=== PATIENT | female | born 1995 | race Caucasian/White ===

== ENCOUNTER → 2021-05-09 | Outpatient (CLI) | payer OTHER ==
[~2021-05-09] MED LIST: DOCUSATE SODIU100 MG PO; FERROUS SULFAT325 MG PO; HYDROCODON-ACE1 EAC4 PO; IBUPROFEN600 MG PO
[2021-05-09 15:43] LABS: HEMOGLOBIN 10.2 gm/dl (12.3-15.3); RED BLOOD COUNT 3.54 M/UL (4.00-5.10); WHITE BLOOD COUNT 7.3 K/UL (4.5-11.0)
== END ==
LOC: GENOP 13:34
PROVIDERS: Obstetrics & Gynecology
DX: O99.891 Other specified diseases and conditions complicating pregnancy (principal); R03.0 Elevated blood-pressure reading, without diagnosis of hypertension; R51.9 Headache, unspecified; R20.0 Anesthesia of skin; Z14.1 Cystic fibrosis carrier; Z3A.39 39 weeks gestation of pregnancy
CPT/HCPCS: 81001; 85025; G0463

== ENCOUNTER 2021-05-11 05:38 | Inpatient (IN) | payer OTHER ==
[~2021-05-11] VITALS: Ht 157.5 cm; Wt 108.9 kg
[2021-05-11] MEDS ORDERED: HYDROCODON-ACE1 EAC4 PO (08:35)
[2021-05-11] MEDS ORDERED: IBUPROFEN600 MG PO (08:35)
[2021-05-11] MEDS ORDERED: DOCUSATE SODIU100 MG PO (08:35)
[2021-05-12] MEDS ORDERED: FERROUS SULFAT325 MG PO (11:53)
== END 2021-05-12 17:15 | disposition home or self-care (01) | DRG 787 ==
LOC: GENOP 05:38 → OB 05:55
PROVIDERS: ADMIT Obstetrics & Gynecology
PROC: 4A1HX4Z Monitoring of Products of Conception, Cardiac Electrical Activity, External Approach (ICD-10-PCS; 2021-05-11)
PROC: 10D00Z1 Extraction of Products of Conception, Low, Open Approach (ICD-10-PCS; principal; 2021-05-11 08:34)
DX: O34.211 Maternal care for low transverse scar from previous cesarean delivery (principal); O98.32 Other infections with a predominantly sexual mode of transmission complicating childbirth; N85.8 Other specified noninflammatory disorders of uterus; Z3A.39 39 weeks gestation of pregnancy; Z37.0 Single live birth; Z14.1 Cystic fibrosis carrier; Z20.822 Contact with and (suspected) exposure to COVID-19
CPT/HCPCS: 36415; 82800; 85014; 85018; C9113; J0690; J2274; J2405; J2590; J7120; U0002

== ENCOUNTER 2022-08-03 13:22 | Outpatient (CLI) | payer OTHER ==
[2022-08-03 14:10] LABS: HEMOGLOBIN 10.3 gm/dl (12.3-15.3); RED BLOOD COUNT 3.81 M/UL (4.00-5.10)
== END 2022-08-03 14:06 | disposition home or self-care (01) ==
LOC: GENOP 13:22
PROVIDERS: Obstetrics & Gynecology
DX: Z01.812 Encounter for preprocedural laboratory examination (principal)
CPT/HCPCS: 36415; 81001; 85025

== ENCOUNTER 2022-08-06 07:25 | Inpatient (IN) | payer OTHER ==
[~2022-08-06] VITALS: Ht 157.5 cm; Wt 104.3 kg
[2022-08-06] MEDS ORDERED: VALTREX1000 MG PO (08:09)
[2022-08-06] MEDS ORDERED: DOCUSATE SODIU100 MG PO (08:13)
[2022-08-06] MEDS ORDERED: IBUPROFEN600 MG PO (08:13)
[2022-08-06] MEDS ORDERED: HYDROCODON-ACE1 EAC4 PO (08:13)
[2022-08-06 14:13] LABS: HEMOGLOBIN 8.8 gm/dl (12.3-15.3)
[2022-08-07 04:44] LABS: HEMOGLOBIN 7.2 gm/dl (12.3-15.3)
[2022-08-08] MEDS ORDERED: FERROUS SULFAT325 MG PO (10:43)
== END 2022-08-08 19:21 | disposition home or self-care (01) | DRG 787 ==
LOC: OB 07:25
PROVIDERS: ADMIT Obstetrics & Gynecology
PROC: 10D00Z1 Extraction of Products of Conception, Low, Open Approach (ICD-10-PCS; principal; 2022-08-06 08:49)
DX: O34.211 Maternal care for low transverse scar from previous cesarean delivery (principal); D62 Acute posthemorrhagic anemia; O98.32 Other infections with a predominantly sexual mode of transmission complicating childbirth; A60.09 Herpesviral infection of other urogenital tract; O99.02 Anemia complicating childbirth; Z28.310 Unvaccinated for COVID-19; O24.420 Gestational diabetes mellitus in childbirth, diet controlled; O43.213 Placenta accreta, third trimester; Z37.0 Single live birth; Z3A.38 38 weeks gestation of pregnancy; Z14.1 Cystic fibrosis carrier
CPT/HCPCS: 36415; 82800; 82962; 85014; 85018; 86850; 86900; 86901; C9113; J0690; J2210; J2274; J2370; J2405; J2550; J2590; J3010